=== PATIENT | female | born 1960 | race Caucasian/White ===

== ENCOUNTER 2019-04-06 15:58 | Observation (INO) ==
[2019-04-06] MEDS ORDERED: Ondansetron 4 MG/2 ML VIAL IVP ONE (16:27)
[2019-04-06] MEDS ORDERED: 0.9 % Sodium Chloride 500 ML IVC ONE (16:27)
[2019-04-06] MEDS ORDERED: Morphine Sulfate 2 MG/ML SYRINGE IVP ONE (16:27)
[2019-04-06] MEDS ORDERED: Aspirin 81 MG TAB.CHEW PO STA ×2 (16:31→17:50)
[2019-04-06 16:37] LABS: Basophils % 0.2 %; Eosinophils # 0.2 K/mcL (0.0-0.6); Eosinophils % 4.5 %; Hemoglobin 13.2 g/dL (11.5-15.4); Immature Granulocytes % 0.4 % (0-4); Lymphocytes # 0.9 K/mcL (0.6-4.6); Lymphocytes % 19.1 %; Mean Corpuscular HGB Conc 32.2 g/dL (31.6-35.5); Mean Corpuscular Hemoglobin 28.5 pg (28.0-33.3); Mean Corpuscular Volume 88.6 fL (83.0-100.0); Mean Platelet Volume 10.6 fL (9.4-12.4); Monocytes # 0.8 K/mcL (0.0-1.3); Neutrophils # 2.6 K/mcL (1.6-8.9); Platelet Count 163 K/mcL (140-400); Red Blood Count 4.63 M/mcL (3.82-4.97); Red Cell Distribution Width 13.9 % (11.5-14.5); Segmented Neutrophils % 58.8 %; White Blood Count 4.5 K/mcL (4.3-11.1)
[2019-04-06 16:38] LABS: INR 1.1; Prothrombin Time 12.7 Seconds (9.4-12.1)
[2019-04-06 16:49] LABS: Alanine Aminotransferase 19 Units/L (7-52); Albumin 3.9 g/dL (3.5-5.7); Albumin/Globulin Ratio 1.7 (1.1-2.2); Alkaline Phosphatase 53 Units/L (34-104); Aspartate Amino Transferase 18 Units/L (13-39); BUN/Creatinine Ratio 13 (6-26); Bilirubin,Total 0.3 mg/dL (0.3-1.0); Blood Urea Nitrogen 11 mg/dL (6-20); Calcium 8.4 mg/dL (8.6-10.3); Carbon Dioxide 24 mEq/L (23-29); Chloride 103 mEq/L (98-107); Globulin 2.3 g/dL (2.4-3.5); Glucose 104 mg/dL (70-105); Osmolality,Calculated 276 (280-300); Potassium 3.6 mEq/L (3.5-5.1); Sodium 133 mEq/L (136-145); Total Protein 6.2 g/dL (6.4-8.9); eGFR For African Americans > 60 (> 60); eGFR For Non-African Americans > 60 (> 60)
[2019-04-06 16:52] LABS: Troponin I < 0.03 ng/mL (< 0.04)
[2019-04-06] MEDS ORDERED: Naloxone 0.4 MG/ML INJ IVP PRN (19:31)
[2019-04-06] MEDS ORDERED: Ondansetron ODT 4 MG TAB.RAPDIS SL PRN ×2 (19:31→23:58)
[2019-04-06] MEDS ORDERED: Ibuprofen 800 MG TABLET PO PRN (22:37)
[2019-04-07] MEDS ORDERED: Ondansetron ODT 4 MG TAB.RAPDIS SL SCH ×2
[2019-04-07 07:42] VITALS: BP 106/71
== END 2019-04-07 11:54 | disposition home or self-care (01) ==
LOC: EMEROOGRE 15:58 → INPGRE 15:58 → EMEROOGRE 15:58 → INPGRE 19:31 → UNDODISOB 21:01
PROVIDERS: ADMIT Family Medicine; ATTEND Family Medicine